=== PATIENT | male | born 1985 | race Caucasian/White ===

== ENCOUNTER 2023-12-21 13:03 | Emergency (ER) | payer OTHER, SELFPAY ==
[2023-12-21 13:12] VITALS: BP 127/95
[2023-12-21 13:23] LABS: % Basophils 0.4 % (0-2); % Eosinophils 1.7 % (0-6); % Immature Granulocytes 0.1 % (0-0.5); % Lymphocytes 23.9 % (20.5-51.1); % Monocytes 6.7 % (1.7-9.3); % Neutrophils 67.2 % (42.2-75.2); Absolute Eosinophils 0.1 10^3/uL (0-0.7); Absolute Lymphocytes 1.8 10^3/uL (1.2-3.4); Absolute Monocytes 0.5 10^3/uL (0.1-0.6); Hematocrit 48.4 % (39.0-52.0); Hemoglobin 16.9 g/dL (13.0-18.0); Mean Corp Hgb Conc. 34.9 g/dL (33.0-37.0); Mean Corpuscular Hgb 29.3 pg (27.0-31.0); Mean Platelet Volume 10.5 fL (7.4-10.4); Nucleated Red Blood Cells % 0 % (-); Platelet Count 280 10^3/uL (130-400); Red Blood Cell Count 5.76 10^6/uL (4.70-6.10); Red Cell Dist. Width 12.2 % (11.5-14.5); White Blood Cell Count 7.5 10^3/uL (4.8-10.8)
[2023-12-21 13:47] LABS: ALT (SGPT) 31 U/L (0-50); AST (SGOT) 25 U/L (17-59); Albumin 5.2 g/dl (3.5-5.0); Alkaline Phosphatase 65 U/L (38-126); Blood Urea Nitrogen 9 mg/dl (9-20); Carbon Dioxide 27 mmol/L (22-30); Chloride 103 mmol/L (98-107); Glucose 108 mg/dl (70-99); Lipase 77 U/L (23-300); Potassium 3.9 mmol/L (3.5-5.1); Sodium 138 mmol/L (135-145); Total Bilirubin 0.6 mg/dl (0.2-1.3); Total Protein 7.8 g/dl (6.3-8.2); eGFR > 60.00
--- NOTE | 2023-12-21 15:33 | ED.GENMED ---
History of Present Illness
General
Chief Complaint: Abdominal Pain
Source: patient
Exam Limitations: none
Time Seen by Provider: 12/21/23 15:23
Nursing documentation reviewed up to this point in time: agreed with
Travel History
Have you had any contact with someone who has COVID-19?: No
Do you have any symptoms of coronavirus? Fever > 100 degrees, chills, cough, shortness of breath, sore throat, loss of taste or smell, muscle aches, or headache?: No
History of Present Illness
History of Present Illness:
38-year-old male presents emerged part complaining of right lower quadrant abdominal pain and nausea since last night. He denies fever. 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 He has not
had any imaging at this hospital. He is unsure if he had an MRI or CT scan of the abdomen at [facility]. His pain has improved but is still persistent.
Past History
Past History
ED Past Medical History: Asthma and Other (Pulmonary emboli, irritable bowel syndrome)
ED Past Surgical History: None
Social History
Tobacco: Non-smoker
Alcohol: None
Drug: None
Review of Systems
Review of Systems
Allergies reviewed?: Yes
All Other Systems: Not applicable
Constitutional: Reports no symptoms; Denies fever
EENT: Reports no symptoms
Respiratory: Reports no symptoms
Cardiac: Reports no symptoms
ABD/GI: Reports abdominal pain and nausea
: Reports no symptoms
Musculoskeletal: Reports no symptoms
Skin: Reports no symptoms
Neurological: Reports no symptoms
Endocrine: Reports no symptoms
Hematologic/Lymphatic: Reports no symptoms
Psychiatric: Reports no symptoms
Phy Exam
Physical Exam
Physical Exam:
Physical Exam
General: no apparent distress, not acutely ill
Neck: supple. no meningeal signs. normal posterior pharynx
Heart: s1/s2 regular rate and rhythm, no murmur. equal radial
pulses.
HEENT: Pupils equal round reactive to light, EOMI
Lungs: no acute respiratory distress. clear bilaterally
Abdomen: normal bowel sounds. Right lower quadrant tenderness, no rebound or guarding. No CVAT
Neuro: alert and oriented. no focal neurological deficits
Skin: no rash
Psychiatric: well kept. interactive and cooperative
Extremities: no edema. no calf tenderness. negative homans. good distal pulses
Course
Orders/Labs/Results
Orders:
Orders
12/21/23 13:18
Complete Blood Count/With Diff Urgent
Comprehensive Metabolic Panel Urgent
Lipase Urgent
12/21/23 15:32
Vital Signs- Treatment ONCE
Frequency: Once
12/21/23 15:33
CT Abd/pelvis W Iv Cont Urgent
Comment:
Reason For Exam: RLQ abdominal pain
IV Insert/Care/Rem.- Treatment PRN
0.9% Sodium Chloride 1000 ml [Nss] 1,000 ml IV BOLUS
Abnormal Lab Results
12/21/23
13:18
MPV 10.5 H fL
(7.4-10.4)
Glucose 108 H mg/dl
(70-99)
Albumin 5.2 H g/dl
(3.5-5.0)
12/21/23 13:18
12/21/23 13:18
Vital Signs
Initial and Last Documented VS:
Initial Vital Signs
Temp Pulse Resp BP Pulse Ox
98.7 F 128 20 127/95 99
12/21/23 13:12 12/21/23 13:12 12/21/23 13:12 12/21/23 13:12 12/21/23 13:12
Last Documented Vital Signs
Temp Pulse Resp BP Pulse Ox
98.7 F 109 16 124/88 99
12/21/23 13:12 12/21/23 17:38 12/21/23 15:44 12/21/23 17:38 12/21/23 15:44
MDM/Problems Addressed
Differential Diagnosis Includes:
appendicitis, bowel obstruction
MDM/Problems Addressed:
38 yo male with abdominal pain. No signs appendicitis. Pain improving. Stable for dc. GI f/u.
Chronic conditions affecting care: Asthma
Acute Exacerbation and/or Progression of Chronic Illness: Asthma
*Radiology
Radiology exam reviewed: radiology read reviewed (ct a/p no signs appendicitis, liver cyst)
*Pulse Oximetry
Patient hypoxic: no
*EKG
Interpreted by ED Provider?: NA
*Sr. Social Media & Mobile Manager Interpretation
Rate: Sr. Social Media & Mobile Manager- N/A
*Critical Care Note
Total Time (30-74mins, 75-104mins- exclusive of procedures): Not Applicable
Patient Management
Social determinants of health affecting care: Strong social support
Escalation/DeEscalation of care consider admission/obs:
admit not indicated
ED Attending Note
-
Portions of this chart may have been created with voice recognition software.� Occasional wrong word or��sound alike� substitutions may have occurred due to the inherent limitations of voice recognition software.
Discharge Plan
Departure
Patient Disposition: Home (Routine Discharge)
Date of Disposition: 12/21/23
Time of Disposition: 18:46
Patient with high blood pressure during this ER visit?: Yes
Condition: Good
Discharge Problem:
Abdominal pain, Hepatic cyst, Renal cyst, right
Instructions: Cysts in the Liver, Abdominal Pain, BLOOD PRESSURE
Referrals:
Chelsie Olson MD [Active] - Call in 1-3 days for appt
UNKNOWN - PT DOES,NOT KNOW [Family Provider] -
Interventions
Interventions:
*Risk Screen - Suicide Last Done: 12/21/23 15:41
*General Assessment Last Done: 12/21/23 15:41
*Neglect/Abuse Screening Last Done: 12/21/23 15:41
*ED COVID-19 Vaccine History Last Done: 12/21/23 13:12
PW-Pdprfn-[id number] Assessment Last Done: 12/21/23 15:41
Discharge Date and Time
Print Language: ARMENIAN
[2023-12-21 15:44] VITALS: BP 136/82
[2023-12-21] MEDS: NSS 1000 IV (16:08)
[2023-12-21 17:38] VITALS: BP 124/88
[2023-12-21 19:12] VITALS: BP 124/88
== END 2023-12-21 19:13 | disposition home or self-care (01) ==
LOC: EMR 13:03
PROVIDERS: Emergency Medicine; EMERGENCY PHYSICIAN Emergency Medicine
DX: R10.31 Right lower quadrant pain (principal); N28.1 Cyst of kidney, acquired; K76.89 Other specified diseases of liver; J45.909 Unspecified asthma, uncomplicated
CPT/HCPCS: 99285; 96360; 74177; 80053; 83690; 85025; Q9967

== ENCOUNTER 2024-07-08 07:36 | Emergency (ER) | payer OTHER, SELFPAY ==
[2024-07-08 07:37] VITALS: BP 124/88
--- NOTE | 2024-07-08 08:21 | ED.GENMED ---
History of Present Illness
General
Chief Complaint: Anxiety
Source: patient
Exam Limitations: none
Time Seen by Provider: 07/08/24 08:08
History of Present Illness
History of Present Illness:
See MDM
Past History
Past History
ED Past Medical History: Asthma and Other (Pulmonary emboli, irritable bowel syndrome)
ED Past Surgical History: None
Social History
Tobacco: Non-smoker
Alcohol: None
Drug: None
Phy Exam
Physical Exam
Physical Exam:
See MDM
Course
Orders/Labs/Results
Orders:
Orders
07/08/24 08:21
Lorazepam [Ativan] 1 mg PO NOW STA
Vital Signs
Initial and Last Documented VS:
Initial Vital Signs
Temp Pulse Resp BP Pulse Ox
97.6 F 110 18 124/88 99
07/08/24 07:37 07/08/24 07:37 07/08/24 07:37 07/08/24 07:37 07/08/24 07:37
Last Documented Vital Signs
Temp Pulse Resp BP Pulse Ox
97.6 F 110 18 124/88 99
07/08/24 07:37 07/08/24 07:37 07/08/24 07:37 07/08/24 07:37 07/08/24 07:37
MDM/Problems Addressed
Differential Diagnosis Includes:
HPI and MDM Narrative:
39-year-old male presenting with increased anxiety. Patient is concerned he could be having a panic attack. Due to his increased anxiety, patient did try THC gummy yesterday with no relief. He had that he also tried. Patient was
concerned because that was not helping. He does admit to increased stress anxiety at home and at work. Patient used to take Zoloft but has not needed it for several years. He took an tablet as well with no relief
Physical exam
General: Well appearing and non-toxic
HEENT: protecting airway
Neck: appears supple
CV: No evidence of cyanosis. Mild tachycardia triage has resolved. No murmur
Resp: No accessory muscle use
Abd: Non-distended
Extremities: No deformities. No leg edema
Neuro: alert
Psych: Anxious
Skin: Intact
Problems Addressed including Acute and Chronic Conditions affecting care:
1. Anxiety
Acuity: acute
Prognosis: stable
Details: Will restart Zoloft given that he is tolerated this in the past. Will write for Ativan as needed. If patient states he feels comfortable at home I will follow-up with his primary care doctor
Differential Diagnosis (but not limited to): Anxiety, depression
Testing considered: EKG but exam appears to show regular rate and rhythm
Drug therapy (if applicable): OTC meds, please see d/c instruction regarding Rx drugs
Amount and/or Complexity of Data Reviewed
Clinical info obtained from: Patient
External data reviewed: N/A
Labs I independently reviewed (but not limited to): N/A
Radiology: N/A
Pulse Ox: not hypoxic
EKG independently reviewed: N/A
Drilling Field Professional: N/A
Critical Care: N/A
Risk of Complication:
Social Determinants of health: Good social support
Discussed with other providers: N/A
Escalation of Care includes Admit/Obs: After being observed in the Emergency Department, pt stable for discharge.
Occasional wrong word or 'sound a like' substitutions may have occurred due to the inherent limitations of voice recognition software. Read the chart carefully and recognize, using context, where substitutions have occurred.
*Critical Care Note
Total Time (30-74mins, 75-104mins- exclusive of procedures): Not Applicable
ED Attending Note
-
Portions of this chart may have been created with voice recognition software.� Occasional wrong word or��sound alike� substitutions may have occurred due to the inherent limitations of voice recognition software.
Discharge Plan
Departure
Patient Disposition: Home (Routine Discharge)
Date of Disposition: 07/08/24
Time of Disposition: 08:21
Patient with high blood pressure during this ER visit?: No
Discharge Problem:
Anxiety
Instructions: Anxiety, Adult (DC)
Prescriptions:
New
sertraline [Zoloft] 50 mg tablet
50 mg PO DAILY Qty: 30 0RF
lorazepam [Ativan] 1 mg tablet
1 mg PO BID PRN (Reason: Anxiety) Qty: 10 0RF
Activity Restrictions/Additional Instructions:
Please return for any worsening symptoms.
You may return at any time if you have further concerns.
Please follow up with your doctor at the first available appointment, preferably this week.
Interventions
Interventions:
*Risk Screen - Suicide Last Done: 07/08/24 07:37
*General Assessment Last Done: 07/08/24 07:37
*Neglect/Abuse Screening Last Done: 07/08/24 07:37
Discharge Date and Time
Print Language: SAMI
[2024-07-08] MEDS: ATIVAN PO (08:31)
[2024-07-08] MEDS: ATIVAN 1 MG PO (08:51)
== END 2024-07-08 08:59 | disposition home or self-care (01) ==
LOC: EMR 07:36
PROVIDERS: EMERGENCY PHYSICIAN Student in an Organized Health Care Education/Training Program
DX: F41.9 Anxiety disorder, unspecified (principal); J45.909 Unspecified asthma, uncomplicated; K58.9 Irritable bowel syndrome, unspecified; Z86.711 Personal history of pulmonary embolism
CPT/HCPCS: 99282

== ENCOUNTER → 2024-07-12 16:17 | Outpatient (REF) | payer OTHER, SELFPAY | LOC: HWRAD 16:17 | PROVIDERS: ATTENDING PHYSICIAN Family Medicine | DX: M54.6 Pain in thoracic spine (principal) | CPT/HCPCS: 72070 ==

== ENCOUNTER 2025-06-16 06:23 | Day surgery (SDC) | payer OTHER, SELFPAY | END 2025-06-16 13:58 | disposition home or self-care (01) | LOC: GI 06:23 | PROVIDERS: ATTENDING PHYSICIAN Internal Medicine Gastroenterology | DX: R93.3 Abnormal findings on diagnostic imaging of other parts of digestive tract (principal); K64.8 Other hemorrhoids | CPT/HCPCS: 45330 ==